=== PATIENT | female | born 1950 | race Caucasian/White ===

== ENCOUNTER 2025-03-09 12:48 | Emergency (ER) | payer MEDICARE, BC ==
[~2025-03-09] VITALS: Ht 165.1 cm; Wt 53.6 kg
--- NOTE | 2025-03-09 14:06 | ED.PDOC ---
Ephraim. trauma (HPI) HPI Comments 74 y/o F, presents to the ED for CC of s/p fall injury. Patient states, she accidently tripped over her dog hitting her head and her right-elbow as a result. Patient has a notable laceration to her right eyebrow; bleeding is controlled and bandage was applied. Patient denies any LOC, nausea, vomiting, dizziness, vision changes, or headache. No other symptoms or modifying factors are present at this time. 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 Family History Family History: Unknown Social History Smoker: Non-Smoker Alcohol: Denies ETOH Use Drugs: Denies Drug Use Lives In: Home Constitutional: denies: chills, diaphoresis, fatigue, fever, malaise, sweats, weakness, others EENTM: denies: blurred vision, double vision, ear bleeding, ear discharge, ear drainage, ear pain, ear ringing, eye pain, eye redness, hearing loss, mouth pain, mouth swelling, nasal discharge, nose bleeding, nose congestion, nose pain, photophobia, tearing, throat pain, throat swelling, voice changes, others Respiratory: denies: cough, hemoptysis, orthopnea, SOB at rest, shortness of breath, SOB with excertion, stridor, wheezing, others Cardiovascular: denies: chest pain, dizzy spells, diaphoresis, Dyspnea on exertion, edema, irregular heart beat, left arm pain, lightheadedness, palpitations, PND, syncope, others Gastrointestinal: denies: abdomen distended, abdominal pain, blood streaked bowels, constipated, diarrhea, dysphagia, difficulty swallowing, hematemesis, melena, nausea, poor appetite, poor fluid intake, rectal bleeding, rectal pain, vomiting, others Genitourinary: denies: abnormal vagina bleeding, burning, dyspareunia, dysuria, flank pain, frequency, hematuria, incontinence, pain, , vagina discharge, urgency, others Neurological: denies: dizziness, fainting, headache, left sided numbness, left sided weakness, numbness, paresthesia, pre-existing deficit, right sided numbness, right sided weakness, seizure, speech problems, tingling, tremors, weakness, others Musculoskeletal: denies: back pain, gout, joint pain, joint swelling, muscle pain, muscle stiffness, neck pain, others Integumetry: reports: laceration; denies: bruises, change in color, change in hair/nails, dryness, lesions, lumps, rash, wounds, others Allergic/Immunocompromised: denies: Difficulty Healing, Frequent Infections, Hives, Itching, others Hematologic/Lymphatic: denies: anemia, blood clots, easy bleeding, easy bruising, swollen glands, others Endocrine: denies: excessive hunger, excessive sweating, excessive thirst, excessive urination, flushing, intolerance to cold, intolerance to heat, unexplained weight gain, unexplained weight loss, others Psychiatric: denies: anxiety, bipolar disorder, depression, hopeless, panic disorder, schizophrenia, sleepless, suicidal, others All Other Systems: Reviewed and Negative Physical Exam General Appearance: No Apparent Distress, Normal HEENT: Normal ENT Inspection, Pharynx Normal Neck: Full Range of Motion, Non-Tender, Normal, Normal Inspection Respiratory: Chest Non-Tender, Lungs Clear, No Accessory Muscle Use, No Respiratory Distress, Normal Breath Sounds Cardiovascular: No Edema, No Murmur, No Gallop, Normal Peripheral Pulses, Regular Rate/Rhythm Breast Exam: Deferred Gastrointestinal: No Organomegaly, Non Tender, No Pulsatile Mass, Normal Bowel Sounds, Soft Genitalia: Deferred Pelvic: Deferred Rectal: Deferred Extremities: No calf tenderness, Normal capillary refill, Normal inspection, Normal range of motion, Non-tender, No pedal edema Musculoskeletal : Apperance: Normal Neurologic: Alert, kitchen worker II-XII nml as Tested, No Motor Deficits, Normal Affect, Normal Mood, No Sensory Deficits Cerebellar Function: Normal Reflexes: Normal Skin: Dry, Lacerations ( to right eyebrow), Normal Color, Warm Lymphatic: No Adenopathy Was a procedure done? Was a procedure done?: Yes Sedation Sedation?: No Laceration Repair : Location Right eyebrow Length 1 cm Anesthetic: Nothing Laceration Repair Prep: Saline, Betadine Laceration Repair Wound Comple: epidermis/dermis repair Laceration Repair: Skin, Dermabond Informed consent obtained: Yes Risks, benefits, and alternati: Yes Differential Diagnosis Multiple Trauma: Contusion, Hematoma, Laceration X-Ray, Labs, Meds, VS Vital Signs Date Time Temp Pulse Resp B/P (MAP) Pulse Ox O2 Delivery O2 Flow Rate FiO2 03/09/25 15:46 79 20 96 Room Air 03/09/25 15:46 98.0 79 20 133/68 (89) 96 98.0 03/09/25 12:52 97.3 96 16 136/84 98 97.3 Current Medications Medications (Trade) Dose Ordered Sig/Rancho Route Start Time Stop Time Status Last Admin Diphtheria/ Tetanus/Acell Pertussis (Boostrix T-Dap) 0.5 ml ONCE ONCE IM 03/09/25 15:15 03/09/25 15:16 DC 03/09/25 15:51 Time of 1ST Reevaluation: 14:30 Reevaluation 1ST: Unchanged Patient Education/Counseling: Diagnosis, Treatment Family Education/Counseling: Diagnosis, Treatment Departure 1 Departure Time of Disposition: 18:20 (Repaired patient's laceration with Dermabond. Patient tolerated the procedure well and we will discharge patient with outpatient follow up) Impression: Primary Impression: Laceration Disposition: 01 HOME / SELF CARE / HOMELESS Condition: Stable Discharged With: Self Critical Care Note Critical Care Time?: No Stability Stability form required: No Heart Score Heart Score: Heart Score Response (Comments) Value History N/A 0 EKG N/A 0 Age N/A 0 Risk Factors N/A 0 Troponin N/A 0 Total 0 I personally scribed for WES SIGALA MD ([email or web address]) on 03/09/25 at 14:06. Electronically submitted by Latasha Chappell ([email or web address]). I personally scribed for WES SIGALA MD ([email or web address]) on 03/09/25 at 15:08. Electronically submitted by Latasha Chappell ([email or web address]). WES SIGALA MD Mar 09, 2025 14:06
[2025-03-09 15:46] VITALS: BP 133/68; PULSE 79; RESP 20; TEMP 98; O2SAT 96
[2025-03-09] MEDS: TETANUS-DIPTH-ACEL PERTUSSIS 0.5ML SYR Tdap IM ONE (15:51)
== END 2025-03-09 18:44 | disposition home or self-care (01) ==
LOC: ER 12:48
DX: S01.111A Laceration without foreign body of right eyelid and periocular area, initial encounter (principal); Z88.1 Allergy status to other antibiotic agents; W01.10XA Fall on same level from slipping, tripping and stumbling with subsequent striking against unspecified object, initial encounter; Y93.89 Activity, other specified; Y92.89 Other specified places as the place of occurrence of the external cause; Y99.8 Other external cause status
CPT/HCPCS: 12011; 90471; 90715; 99283; A4649